=== PATIENT | female | born 1960 | race Two or more races ===

== ENCOUNTER 2017-12-01 11:58 | Outpatient (CLI) | payer OTHER | END 2017-12-01 14:30 | disposition home or self-care (01) | LOC: RAD 11:58 | DX: R09.81 Nasal congestion (principal); J32.9 Chronic sinusitis, unspecified ==

== ENCOUNTER → 2017-12-01 | Outpatient (CLI) | payer OTHER ==
[~2017-12-01] VITALS: Ht 152.4 cm; Wt 74.4 kg
[~2017-12-01] MED LIST: ALEVE220 M1 PO; CEFADROXIL500 MG PO; ETODOLAC500 MG PO; FLEXERIL10 MG PO; FLONASE16 GM NS; GILTUSS TR TAB1 EACH PO; LODINE XL500 MG PO; LOPID 600 MG PO; PERCOCET 5/3251 TAB PO; ULTRACET PO; ULTRAM50 MG PO; ZOCOR20 MG PO; ZYRTEC10 MG PO; [UNRECOGNIZED DRUG - OTHER] TP
== END | disposition home or self-care (01) ==
LOC: PPHC 11:02
DX: R09.81 Nasal congestion (principal); R04.0 Epistaxis; J32.8 Other chronic sinusitis

== ENCOUNTER 2017-12-04 08:19 | Outpatient (CLI) | payer OTHER ==
[~2017-12-04] VITALS: Ht 157.5 cm; Wt 72.6 kg
== END 2017-12-04 08:45 | disposition home or self-care (01) ==
LOC: OFIC 805 08:19
DX: R04.0 Epistaxis (principal); R09.81 Nasal congestion; J32.8 Other chronic sinusitis

== ENCOUNTER 2018-04-18 06:44 | Outpatient (CLI) | payer OTHER | END 2018-04-18 07:00 | disposition home or self-care (01) | LOC: LAB 06:44 | DX: R42 Dizziness and giddiness (principal); R51 Headache ==

== ENCOUNTER 2018-04-23 06:33 | Outpatient (CLI) | payer OTHER | END 2018-04-23 06:35 | disposition home or self-care (01) | LOC: LAB 06:33 | DX: R60.0 Localized edema (principal); R73.9 Hyperglycemia, unspecified ==

== ENCOUNTER 2018-05-15 07:10 | Outpatient (CLI) | payer OTHER | END 2018-05-15 08:00 | disposition home or self-care (01) | LOC: NUCLEAR 07:10 | DX: R60.0 Localized edema (principal) ==

== ENCOUNTER → 2018-10-18 09:41 | Outpatient (CLI) | payer OTHER | END | disposition home or self-care (01) | LOC: LAB 09:41 | DX: J11.1 Influenza due to unidentified influenza virus with other respiratory manifestations (principal); J18.0 Bronchopneumonia, unspecified organism ==

== ENCOUNTER 2018-12-25 08:57 | Outpatient (CLI) | payer OTHER ==
[~2018-12-25] VITALS: Ht 152.4 cm; Wt 72.6 kg
== END 2018-12-25 09:15 | disposition home or self-care (01) ==
LOC: OFIC 805 08:57
DX: J03.80 Acute tonsillitis due to other specified organisms (principal); R13.19 Other dysphagia

== ENCOUNTER 2019-10-21 09:04 | Outpatient (CLI) | payer OTHER | END 2019-10-21 15:00 | disposition home or self-care (01) | LOC: LAB 09:04 | DX: J20.0 Acute bronchitis due to Mycoplasma pneumoniae (principal); J11.1 Influenza due to unidentified influenza virus with other respiratory manifestations ==

== ENCOUNTER 2020-02-10 08:53 | Outpatient (CLI) | payer OTHER | END 2020-02-10 09:11 | disposition home or self-care (01) | LOC: LAB 08:53 | DX: J11.1 Influenza due to unidentified influenza virus with other respiratory manifestations (principal); J06.9 Acute upper respiratory infection, unspecified ==

== ENCOUNTER 2020-02-12 10:41 | Inpatient (IN) | payer OTHER ==
[~2020-02-12] VITALS: Ht 157.5 cm; Wt 59.0 kg
[2020-02-12] MEDS ORDERED: ASPIR 8181 MG PO (12:18)
== END 2020-02-24 19:05 | disposition home or self-care (01) | DRG 177 ==
LOC: ER 10:41 → SEC-K 17:28 → MEDJ 17:28 → MEDI 02-13 11:26 → MEDJ 02-13 12:01
PROVIDERS: ADMIT Internal Medicine
PROC: 8E0ZXY6 Isolation (ICD-10-PCS; principal; 2020-02-12)
PROC: 4A12X4Z Monitoring of Cardiac Electrical Activity, External Approach (ICD-10-PCS; 2020-02-12)
PROC: 3E0F7GC Introduction of Other Therapeutic Substance into Respiratory Tract, Via Natural or Artificial Opening (ICD-10-PCS; 2020-02-12)
PROC: 4A033R1 Measurement of Arterial Saturation, Peripheral, Percutaneous Approach (ICD-10-PCS; 2020-02-12)
PROC: CB2YYZZ Tomographic (Tomo) Nuclear Medicine Imaging of Respiratory System using Other Radionuclide (ICD-10-PCS; 2020-02-12)
DX: U07.1 COVID-19 (principal); J12.89 Other viral pneumonia; R43.0 Anosmia; E78.5 Hyperlipidemia, unspecified; R09.02 Hypoxemia

== ENCOUNTER 2020-05-26 06:42 | Outpatient (CLI) | payer OTHER ==
[~2020-05-26 06:42] MED LIST changes: +ASPIR 8181 MG PO
== END 2020-05-26 06:59 | disposition home or self-care (01) ==
LOC: LAB 06:42
PROVIDERS: ATTEND General Practice
DX: L65.8 Other specified nonscarring hair loss (principal); M25.551 Pain in right hip; M25.552 Pain in left hip; I87.2 Venous insufficiency (chronic) (peripheral); Z00.8 Encounter for other general examination

== ENCOUNTER 2020-06-02 10:57 | Outpatient (CLI) | payer OTHER | END 2020-06-02 11:13 | disposition home or self-care (01) | LOC: NUCLEAR 10:57 | PROVIDERS: ATTEND General Practice | DX: I87.2 Venous insufficiency (chronic) (peripheral) (principal); I73.9 Peripheral vascular disease, unspecified ==

== ENCOUNTER 2020-06-03 09:10 | Outpatient (CLI) | payer OTHER | END 2020-06-03 09:22 | disposition home or self-care (01) | LOC: NUCLEAR 09:10 | PROVIDERS: ATTEND General Practice | DX: I87.2 Venous insufficiency (chronic) (peripheral) (principal) ==

== ENCOUNTER 2020-06-09 14:43 | Outpatient (CLI) | payer OTHER | END 2020-06-09 15:38 | disposition home or self-care (01) | LOC: CERTIFICAD 14:43 | DX: Z11.1 Encounter for screening for respiratory tuberculosis (principal) ==

== ENCOUNTER 2020-07-14 09:00 | Outpatient (CLI) | payer OTHER | END 2020-07-14 15:00 | disposition home or self-care (01) | LOC: PPH VACUNA 09:00 | DX: Z23 Encounter for immunization (principal) ==

== ENCOUNTER 2025-10-20 08:45 | Inpatient (IN) | payer OTHER ==
[~2025-10-20] VITALS: Ht 157.5 cm; Wt 81.6 kg
[2025-10-20] MEDS ORDERED: LOSARTAN POTASS50 MG PO (09:31)
--- NOTE | 2025-10-20 09:34 | NUR ---
SE RECIBE PTE ALERTA Y ORIENTADA X3 QUIEN REFIERE QUE DESDE LA 1 AM CARTER ESTADO CON DOLOR ABDOMINAL Y SANGRADO ANAL. SE MIDEN S/V Y SE UBICA.
[2025-10-20] MEDS ORDERED: 0.9 % SODIUM CHLORIDE 1,000 ML IV ONE (11:00)
[2025-10-20 12:19] LABS: BASO % 0.3 % (0.1-1.2); EOS # 0.03 (0.04-0.54); EOS % 0.3 % (0.7-7.0); LYMPH # 1.32 (1.18-3.74); LYMPH % 13.0 % (19.3-53.1); MEAN PLATELET VOLUME 10.30 fl (9.4-12.4); MONO # 0.64 (0.24-0.82); MONO % 6.3 % (4.7-12.5); NEUT # 8.07 (1.56-6.13); NEUT % 79.7 % (34.0-71.1); RED CELL DISTRIBUTION WIDTH 12.8 % (11.6-14.4)
[2025-10-20 12:53] LABS: BUN CREA RATIO 23.0 (7.0-25.0); CREATININE SERUM 0.64 mg/dL (0.55-1.02); GFR 92.56; GLUCOSE FASTING 110.0 mg/dL (65-100); OSMOLALITY SERUM 279.0 MOSM/KG (275-295)
[2025-10-20 12:55] LABS: INR 0.97
--- NOTE | 2025-10-20 13:49 | NUR ---
PACIENTE ALERTAY ORIENTADA SE EDUCA SOBRE TRATAMIENTO A SEGUIR. SE ADMINISTRAN MEDICAMENTO Y SE FRANCESCO MUESTRAS JESSA ORDEN MEDICA Y CON MEDIDAS ASEPTICAS.
[2025-10-20] MEDS ORDERED: CEFTRIAXONE SODIUM 2,000 MG VIAL IV ONE ×2 (15:00)
[2025-10-20] MEDS ORDERED: MORPHINE SULFATE 4 MG/ML CARTRIDGE IV ONE (15:00)
[2025-10-20] MEDS ORDERED: CEFTRIAXONE SODIUM 2,000 MG VIAL ONE (16:02)
--- NOTE | 2025-10-20 16:16 | NUR ---
SE ORIENTA PACIENTE SOBRE TX MEDICO Y NESTOR REFIERE DESEAR REUSAR PARTE DEL MISMO. SE PROCEDE A ADMINISTRAR MEDICAMENTO JESSA ORDEN MEDICA BAJO MEIDDAS ASEPTICAS. PACIENTE REUSA MORPHINA, YA QUE INDICA NO TENER MUCHO DOLOR. SE ORIENTA A PACIENTE SOBRE CAMBIOS DE POSICION.
[2025-10-20] MEDS ORDERED: ENALAPRILAT DIHYDRATE 1.25 MG/ML VIAL IV PRN (17:45)
[2025-10-20 18:38] VITALS: BP 120/90
[2025-10-20] MEDS ORDERED: METRONIDAZOLE/SODIUM CHLORIDE 500 MG/100 ML PIGGYBACK IV ONE (19:15)
[2025-10-20 20:10] LABS: BASO % 0.1 % (0.1-1.2); EOS # 0.03 (0.04-0.54); EOS % 0.4 % (0.7-7.0); LYMPH # 1.27 (1.18-3.74); LYMPH % 15.0 % (19.3-53.1); MEAN PLATELET VOLUME 9.90 fl (9.4-12.4); MONO # 0.52 (0.24-0.82); MONO % 6.1 % (4.7-12.5); NEUT # 6.61 (1.56-6.13); NEUT % 78.0 % (34.0-71.1); RED CELL DISTRIBUTION WIDTH 12.9 % (11.6-14.4)
[2025-10-20 20:41] LABS: CHOL HDL RATIO 4.6 (0-5.0); HDL 50.0 mg/dl (40-60); LDL 137.0 mg/dl (0-130); VLDL 41.0 (0-39)
[2025-10-20] MEDS ORDERED: PANTOPRAZOLE SODIUM 40 MG/VIAL VIAL IV SCH (21:00)
[2025-10-21 04:22] VITALS: BP 112/70; O2SAT 96
[2025-10-21] MEDS ORDERED: GUAIFEN/DEXTROMETHORPHAN/PE 10 ML BLIST.PACK PO SCH (05:00)
[2025-10-21] MEDS ORDERED: BENZONATATE 100 MG CAPSULE PO SCH (05:00)
[2025-10-21 07:44] LABS: BASO % 0.4 % (0.1-1.2); EOS # 0.20 (0.04-0.54); EOS % 2.5 % (0.7-7.0); LYMPH # 0.88 (1.18-3.74); LYMPH % 11.1 % (19.3-53.1); MEAN PLATELET VOLUME 10.70 fl (9.4-12.4); MONO # 0.55 (0.24-0.82); MONO % 7.0 % (4.7-12.5); NEUT # 6.21 (1.56-6.13); NEUT % 78.5 % (34.0-71.1); RED CELL DISTRIBUTION WIDTH 13.1 % (11.6-14.4)
[2025-10-21 07:46] LABS: ALT/SGPT 15.0 U/L (12-78); AST/SGOT 8.0 U/L (15-37); BILIRUBIN TOTAL 0.49 mg/dL (0.3-1.2); BUN CREA RATIO 17.0 (7.0-25.0); CREATININE SERUM 0.82 mg/dL (0.55-1.02); GFR 69.53; GLOBULINA 3.3 G/DL (2.4-3.5); GLUCOSE FASTING 101.0 mg/dL (65-100); OSMOLALITY SERUM 282.0 MOSM/KG (275-295)
[2025-10-21 08:00] VITALS: BP 109/69; O2SAT 96
[2025-10-21] MEDS ORDERED: OSELTAMIVIR PHOSPHATE 75 MG CAPSULE PO SCH (09:00)
[2025-10-21] MEDS ORDERED: CEFTRIAXONE SODIUM 2,000 MG in DEXTROSE 5 % IN WATER 100 ML IV SCH (09:00)
[2025-10-21] MEDS ORDERED: ACETAMINOPHEN 500 MG GEL..CAP PO PRN (12:30)
[2025-10-21 16:00] VITALS: BP 116/68; O2SAT 98
[2025-10-21] MEDS ORDERED: AA 4.25%/CAL/LYTES/DEXT 5% 1,000 ML PERIFERAL SCH (17:00)
[2025-10-21] MEDS ORDERED: ROSUVASTATIN CALCIUM 20 MG TABLET PO NR (19:00)
[2025-10-22] VITALS: BP 114/68; O2SAT 95
[2025-10-22 08:03] LABS: BASO % 0.1 % (0.1-1.2); EOS # 0.25 (0.04-0.54); EOS % 3.3 % (0.7-7.0); LYMPH # 1.02 (1.18-3.74); LYMPH % 13.4 % (19.3-53.1); MEAN PLATELET VOLUME 10.30 fl (9.4-12.4); MONO # 0.41 (0.24-0.82); MONO % 5.4 % (4.7-12.5); NEUT # 5.90 (1.56-6.13); NEUT % 77.4 % (34.0-71.1); RED CELL DISTRIBUTION WIDTH 12.9 % (11.6-14.4)
[2025-10-22 09:06] LABS: ALT/SGPT 16.0 U/L (12-78); AST/SGOT 10.0 U/L (15-37); BILIRUBIN TOTAL 0.46 mg/dL (0.3-1.2); BUN CREA RATIO 16.0 (7.0-25.0); CREATININE SERUM 0.83 mg/dL (0.55-1.02); GFR 68.57; GLOBULINA 3.3 G/DL (2.4-3.5); GLUCOSE FASTING 114.0 mg/dL (65-100); OSMOLALITY SERUM 284.0 MOSM/KG (275-295)
[2025-10-22 10:38] VITALS: BP 123/75; O2SAT 100
[2025-10-22 11:34] LABS: COVID-19 AG NEGATIVE (NEGATIVE)
[2025-10-22] MEDS ORDERED: LACTOBACILLUS ACIDOPHILUS 1 CAP CAP PO NR (12:00)
[2025-10-22] MEDS ORDERED: BISMUTH SUBSALICYLATE 524 MG/30 ML BLIST.PACK PO SCH (13:00)
[2025-10-22 15:00] VITALS: BP 145/84; O2SAT 94
[2025-10-22] MEDS ORDERED: LACTOBACILLUS ACIDOPHILUS 1 CAP CAP PO SCH (17:00)
[2025-10-22] MEDS ORDERED: ROSUVASTATIN CALCIUM 20 MG TABLET PO SCH (17:00)
[2025-10-23] VITALS: BP 134/73; O2SAT 96
[2025-10-23 08:00] VITALS: BP 148/84; O2SAT 98
[2025-10-23] MEDS ORDERED: LEVOFLOXACIN750 MG PO (11:08)
[2025-10-23] MEDS ORDERED: OSEL75CA PO (11:09)
[2025-10-23] MEDS ORDERED: TRAM1TAB98 PO (11:10)
== END 2025-10-23 15:04 | disposition home or self-care (01) | DRG 392 ==
LOC: ER 08:46 → MEDI 18:54 → SURH 18:54
PROVIDERS: Emergency Medicine; Internal Medicine Infectious Disease; ADMIT Internal Medicine; ATTEND Internal Medicine
PROC: 8E0ZXY6 Isolation (ICD-10-PCS; principal; 2025-10-20)
PROC: BW21YZZ Computerized Tomography (CT Scan) of Abdomen and Pelvis using Other Contrast (ICD-10-PCS; 2025-10-20)
PROC: 3E0336Z Introduction of Nutritional Substance into Peripheral Vein, Percutaneous Approach (ICD-10-PCS; 2025-10-21)
DX: K52.9 Noninfective gastroenteritis and colitis, unspecified (principal); K62.5 Hemorrhage of anus and rectum; J10.1 Influenza due to other identified influenza virus with other respiratory manifestations